=== PATIENT | female | born 1985 | race Caucasian/White ===

== ENCOUNTER 2022-01-12 20:44 | Emergency (ER) | payer BC ==
--- NOTE | 2022-01-12 21:17 | ERPHSYRPT ---
- History of Present Illness Time Seen by Provider: 01/12/22 20:47 Source: patient Exam Limitations: no limitations Patient Subjective Stated Complaint: . Triage Nursing Assessment: . Physician History: 36-year-old female presented in ER with chief complaint of right shoulder pain after she accidentally took a fall while getting out of bathtub. She did not hit her head, no loss of consciousness. She is having moderate intensity sharp pain with minimal movements at the right shoulder. Denies any numbness or tingling in the hand/arm. Pain is better with resting. Has restricted range of motion. Occurred: this evening Method of Injury: fell Quality: sharpness Severity of Pain-Max: moderate Severity of Pain-Current: moderate Extremities Pain Location: shoulder: right Modifying Factors: Improves With: immobilization, rest. Worsens With: movement Associated Symptoms: none Home Medications: Escitalopram Oxalate [Lexapro] 10 mg PO DAILY 01/12/22 [History] Hx Tetanus, Diphtheria Vaccination/Date Given: No Hx Influenza Vaccination/Date Given: No Hx Pneumococcal Vaccination/Date Given: No Immunizations Up to Date: Yes Travel Risk - International Travel Have you traveled outside of the country in past 3 weeks: No - Coronavirus Screening Are you exhibiting any of the following symptoms?: No - Vaccine Status Have you recieved a Covid-19 vaccination: No - Review of Systems Constitutional: No Symptoms Eyes: No Symptoms Ears, Nose, & Throat: No Symptoms Respiratory: No Symptoms Cardiac: No Symptoms Abdominal/Gastrointestinal: No Symptoms Genitourinary Symptoms: No Symptoms Musculoskeletal: Fall, Injury, Joint Pain, Joint Swelling Skin: No Symptoms Neurological: No Symptoms Psychological: Anxiety Endocrine: No Symptoms Hematologic/Lymphatic: No Symptoms - Past Medical History Pertinent Past Medical History: Yes - Past Surgical History Past Surgical History: Yes Other Surgical History: LEAP Surgery - Social History Smoking Status: Never smoker Exposure to second hand smoke: No Drug Use: none Patient Lives Alone: No - Female History Hx Last Menstrual Period: 12/16/21 Hx Now: No - Nursing Vital Signs Nursing Vital Signs: Initial Vital Signs Temperature 97.8 F 01/12/22 20:58 Pulse Rate 72 01/12/22 20:58 Respiratory Rate 18 01/12/22 20:58 Blood Pressure 136/92 01/12/22 20:58 O2 Sat by Pulse Oximetry 94 L 01/12/22 20:58 Pain Scale Pain Intensity 2 - Physical Exam General Appearance: no apparent distress, alert Eyes, Ears, Nose, Throat Exam: normal ENT inspection Neck Exam: normal inspection, non-tender, supple, full range of motion, No limited range of motion, No tenderness midline Cardiovascular/Respiratory Exam: chest non-tender, normal breath sounds, regular rate/rhythm Abdominal Exam: non-tender, soft Back Exam: normal inspection, normal range of motion, CVA tenderness Shoulder Exam: bone tenderness (Apparent of humerus right side), limited ROM (Right shoulder), pain, soft tissue tenderness Elbow/Forearm Exam: normal inspection, non-tender, no evidence of injury, normal ROM Wrist Exam: normal inspection, no evidence of injury, normal ROM Neuro/Tendon Exam: normal sensation Mental Status Exam: alert, oriented x 3, cooperative Skin Exam: normal color SpO2 Interpretation: normal SpO2: 94 O2 Delivery: Room Air Ordered Tests: Active Orders 24 hr Category Date Time Status SHOULDER Stat Exams 01/12/22 21:33 Taken Medication Summary Discontinued Medications Generic Name Dose Route Start Last Admin Trade Name Freq PRN Reason Stop Dose Admin Hydrocodone Bitart/Acetaminophen 2 tab 01/12/22 21:50 Hydrocodone/Apap 5/325 Mg Tablet PO 01/12/22 21:51 SENT HOME W/ PATIENT ONE - Progress Progress: pain not gone completely, re-examined Progress Note: 01/12/22 21:51 36-year-old is evaluated for right shoulder pain after fall. She has restricted range of motion. Has intact distal neurovascular. X-ray showed fracture head of humerus. Placed in a sling, symptomatic treatment for pain and outpatient follow-up with [facility] tomorrow morning. Counseled pt/family regarding: diagnosis, need for follow-up, rad results - Departure Departure Disposition: Home Clinical Impression: Fracture of humeral head Condition: Stable Critical Care Time: No Referrals: TYSON HERNANDEZ NP [Primary Care Provider] - Follow Up with PCP/3 days Instructions: Shoulder Fracture (DC) Additional Instructions: Take pain medications as needed. Follow-up with [facility] for reevaluation in the morning. Return to ER for excruciating pain, numbness tingling weakness arm. Prescriptions: Hydrocodone/Acetaminophen [Hydrocodone-Acetamin 5-325 mg] 1 tab PO Q6HPRN PRN 3 Days #12 tablet MDD 4 PRN Reason: Pain
[2022-01-12] MEDS ORDERED: NORCO 5/325 MG PO ONE (21:50)
[2022-01-12] MEDS ORDERED: NORCO 5/325 MG ONE (22:00)
[2022-01-12 22:46] VITALS: BP 133/84; PULSE 70; O2SAT 95
--- NOTE | 2022-01-13 08:34 | XRAY ---
Indication: Pain following fall. Comparison: None 3 view right shoulder demonstrates mildly displaced posterior lateral humeral head fracture with effusion. No other bony, articular, or soft tissue abnormalities.
== END 2022-01-12 22:00 | disposition home or self-care (01) ==
LOC: ED 20:44
DX: S42.291A Other displaced fracture of upper end of right humerus, initial encounter for closed fracture (principal); W18.2XXA Fall in (into) shower or empty bathtub, initial encounter; Y93.E1 Activity, personal bathing and showering; Y92.002 Bathroom of unspecified non-institutional (private) residence as the place of occurrence of the external cause; M25.511 Pain in right shoulder; Z79.899 Other long term (current) drug therapy; Z28.310 Unvaccinated for COVID-19; Z79.891 Long term (current) use of opiate analgesic
CPT/HCPCS: 73030; 99283; A9270-GY